=== PATIENT | female | born 1965 | race Native Hawaiian/Other Pacific Islander ===

== ENCOUNTER 2020-10-13 00:24 | Emergency (ER) | payer OTHER ==
[~2020-10-13] VITALS: Ht 162.6 cm; Wt 56.7 kg
[2020-10-13 01:18] LABS: PLATELET COUNT 285 K/uL (152-353)
[2020-10-13 01:26] LABS: SODIUM 138 mmol/L (136-145)
[2020-10-13 03:02] VITALS: BP 112/88; TEMP 98.3
== END 2020-10-13 03:02 | disposition home or self-care (01) ==
LOC: ED 00:24
PROVIDERS: Emergency Medicine Emergency Medical Services
DX: R20.2 Paresthesia of skin (principal)
CPT/HCPCS: 36415; 80053; 84484; 85027; 93005; 99283

== ENCOUNTER 2020-12-22 09:18 | Outpatient (CLI) | payer OTHER | END 2020-12-22 22:08 | disposition home or self-care (01) | LOC: US 09:18 | PROVIDERS: ATTEND Nurse Practitioner Family | DX: E04.9 Nontoxic goiter, unspecified (principal); R22.1 Localized swelling, mass and lump, neck ==